=== PATIENT | female | born 2000 | race African-American/Black ===

== ENCOUNTER 2019-04-10 00:36 | Emergency (ER) | payer MEDICAID ==
[~2019-04-10] VITALS: Ht 162.6 cm; Wt 107.0 kg
[2019-04-10] MEDS ORDERED: NAPROXEN 375MG TABLET PO ONE (02:00)
[2019-04-10 02:42] VITALS: BP 130/56
== END 2019-04-10 02:43 | disposition home or self-care (01) ==
LOC: ER 00:36
DX: M67.442 Ganglion, left hand (principal); R03.0 Elevated blood-pressure reading, without diagnosis of hypertension
CPT/HCPCS: 73130; 99283

== ENCOUNTER → 2020-03-29 | Emergency (ER) | payer MEDICAID, OTHER ==
[~2020-03-29] VITALS: Ht 162.6 cm; Wt 127.0 kg
[2020-03-29 20:09] VITALS: BP 158/85
== END ==
LOC: ER 19:21
DX: N93.9 Abnormal uterine and vaginal bleeding, unspecified (principal); Z53.21 Procedure and treatment not carried out due to patient leaving prior to being seen by health care provider